=== PATIENT | female | born 1995 | race American Indian/Alaskan Native ===

== ENCOUNTER 2017-08-21 16:28 | Inpatient (IN) | payer OTHER ==
[2017-08-21] MEDS ORDERED: NACL 0.9% 1000 ML 1,000 ML IV ONE ×2 (17:00→19:15)
[2017-08-21] MEDS ORDERED: MORPHINE IV ONE ×2 (17:00→18:06)
[2017-08-21] MEDS ORDERED: ZOFRAN IV ONE (17:00)
[2017-08-21 17:03] LABS: Basophils % (Auto) 0.3 % (0.0-1.8); Hematocrit 39.1 % (30.3-42.9); Hemoglobin 13.2 gm/dl (10.1-14.3); Mean Corpuscular HGB Conc 34 % (30-34); Mean Corpuscular Hemoglobin 31 pg (28-32); Mean Corpuscular Volume 93 fl (79-97); Platelet Count 257 K/mm3 (140-440); Red Blood Count 4.22 M/mm3 (3.65-5.03); Red Cell Distribution Width 12.7 % (13.2-15.2); White Blood Count 20.1 K/mm3 (4.5-11.0)
--- NOTE | 2017-08-21 17:04 | Emergency Department Report ---
HPI - General Chief Complaint: Abdominal Pain Time Seen by Provider: 08/21/17 16:50 - HPI HPI: This is a 22-year-old Citizen Of [place] female presents to the emergency department, dropped off by her brother, with complaint of a 2 to three-day history of generalized abdominal pain that is worse in the lower quadrants. She denies any current nausea, vomiting or diarrhea but did have some last week. Previous to this patient that she had some flulike symptoms for a few weeks. She just started having what she believes is her menstrual cycle and therefore took some ibuprofen but this appeared to make symptoms worse. She is having a normal amount of vaginal bleeding consistent with her menstrual cycle but she denies any vaginal discharge, dysuria. She says that she has some increased pain with bowel movements but does not have any trouble doing so. She denies any past medical history. No recent travel or sick contacts at home. She does not have a primary care physician. ED Past Medical Hx - Past Medical History Previous Medical History?: No - Surgical History Additional Surgical History: - Social History Smoking Status: Never Smoker Substance Use Type: None ED Review of Systems ROS: Stated complaint: ABD PAIN/ABD SWELLING Other details as noted in HPI Comment: All other systems reviewed and negative Constitutional: denies: chills, fever Eyes: denies: eye pain, eye discharge, vision change ENT: denies: ear pain, throat pain Respiratory: denies: cough, shortness of breath, wheezing Cardiovascular: denies: chest pain, palpitations Gastrointestinal: abdominal pain. denies: melena Genitourinary: denies: urgency, dysuria, discharge Musculoskeletal: denies: back pain, joint swelling, arthralgia Skin: denies: rash, lesions Neurological: headache. denies: numbness, paresthesias Physical Exam - Physical Exam Vital Signs: Vital Signs 08/21/17 16:31 Temperature 100.4 F H Pulse Rate 145 H Respiratory 20 Rate Blood Pressure 138/86 O2 Sat by Pulse 100 Oximetry Physical Exam: GENERAL: The patient is well-developed well-nourished. HENT: Normocephalic. Atraumatic. Patient has moist mucous membranes. EYES: Extraocular motions are intact. Pupils equal reactive to light bilaterally. NECK: Supple. Trachea is midline. CHEST/LUNGS: Clear to auscultation. There is no respiratory distress noted. HEART/CARDIOVASCULAR: Regular. There is no tachycardia. There is no murmur. ABDOMEN: Abdomen is soft. Patient has moderate generalized tenderness to palpation of the abdomen. There is some mild guarding but no rebound tenderness. No peritoneal signs. Patient has normal bowel sounds. There is no abdominal distention. SKIN: Skin is warm and dry. NEURO: The patient is awake, alert, and oriented. The patient is cooperative. The patient has no focal neurologic deficits. The patient has normal speech. MUSCULOSKELETAL: There is no tenderness or deformity. There is no limitation range of motion. There is no evidence of acute injury. ED Course Vital Signs 08/21/17 16:31 Temperature 100.4 F H Pulse Rate 145 H Respiratory 20 Rate Blood Pressure 138/86 O2 Sat by Pulse 100 Oximetry ED Medical Decision Making - Lab Data Result diagrams: 08/21/17 16:40 08/21/17 16:40 - Radiology Data Radiology results: report reviewed EXAM: CT ABDOMEN PELVIS W CON HISTORY: Abd pain COMPARISON: None available. TECHNIQUE: Contiguous axial images were obtained. Additional sagittal and coronal reformatted images were obtained. Administration of IV contrast given per institution protocol. Images submitted for interpretation. 100 cc Omnipaque 300. FINDINGS: Mild subsegmental atelectasis at the right lung base. 5 millimeter low-attenuation lesion at the junction between the left and right hepatic lobes. This is too small to accurately characterize but may reflect a tiny cyst. Mild focal fatty infiltration of liver along the falciform ligament. Otherwise, liver, spleen, pancreas and adrenal glands are unremarkable. Common bile duct measures 4-5 millimeters within normal limits. No calcified gallstones. No solid renal lesion. No hydronephrosis. Aorta and IVC are normal in caliber. Several fluid-filled small bowel loops in the pelvis with mild hyperemia concerning for enteritis. Moderate large amount of stool in the colon. No bowel obstruction. No free air. Questionable visualization of the appendix measuring 4-5 millimeters in diameter (series 3, image [id number]). No adjacent fat stranding or fluid. Uterus and ovaries are grossly unremarkable. Urinary bladder is unremarkable. Bony pelvis and lumbar spine are grossly intact. IMPRESSION: Several fluid-filled small bowel loops in the pelvis with mild hyperemia concerning for enteritis likely inflammatory infectious in etiology. No bowel obstruction. Moderate large amount of stool in the colon. This questionable visualization appendix which appears to be normal in caliber. No evidence of acute appendicitis by CT at this time. No other acute findings. Transcribed By: LMA Dictated By: ORALIA DICKINSON MD Electronically Authenticated By: ORALIA DICKINSON MD Signed Date/Time: 08/21/17 1526 - Medical Decision Making The patient appears to have sepsis secondary to a urinary tract infection. She has a 20,000 white count with a left shift. She has a urinary tract infection and urine cultures were sent and the patient was started on Rocephin. She has a low-grade fever, tachycardia. CT of the abdomen and pelvis shows several fluid-filled small bowel loops concerning for enteritis but no bowel obstruction and there is a large amount of stool throughout the intestines. She will be admitted to the hospital for further evaluation and treatment and has been accepted for admission by the hospitalist, Dr. Dixon. - Differential Diagnosis sepsis, UTI, appendicitis, pancreatitis Critical Care Time: No Critical care attestation.: If time is entered above; I have spent that time in minutes in the direct care of this critically ill patient, excluding procedure time. ED Disposition Clinical Impression: Enteritis Sepsis Qualifiers: Sepsis type: sepsis due to unspecified organism Qualified Code(s): A41.9 - Sepsis, unspecified organism UTI (urinary tract infection) Qualifiers: Urinary tract infection type: acute cystitis Hematuria presence: with hematuria Qualified Code(s): N30.01 - Acute cystitis with hematuria Abdominal pain Qualifiers: Abdominal location: generalized Qualified Code(s): R10.84 - Generalized abdominal pain Disposition: OP ADMIT IP TO THIS HOSP Is pt being admited?: Yes Condition: Stable Time of Disposition: 19:35
[2017-08-21 17:06] LABS: Alanine Aminotransferase 7 units/L (7-56); Albumin 4.1 g/dL (3.9-5); Albumin/Globulin Ratio 1.1 %; Alkaline Phosphatase 18 units/L (35-129); Anion Gap 19 mmol/L; BUN/Creatinine Ratio 13; Blood Urea Nitrogen 9 mg/dL (7-17); Calcium 9.3 mg/dL (8.4-10.2); Carbon Dioxide 25 mmol/L (22-30); Chloride 96.6 mmol/L (98-107); Glucose 114 mg/dL (65-100); Lipase 14 units/L (13-60); Potassium 4.2 mmol/L (3.6-5.0); Sodium 136 mmol/L (137-145)
[2017-08-21 17:08] LABS: Bacteria,Urine 1+ /HPF (Negative); Bilirubin,Urine NEG (Negative); Blood,Urine LG (Negative); Ketones,Urine NEG (Negative); Leukocyte Esterase,Urine MOD (Negative); Mucus,Urine FEW /HPF; Nitrite,Urine POS (Negative)
[2017-08-21] MEDS ORDERED: NACL ONE (17:27)
[2017-08-21] MEDS ORDERED: ROCEPHIN/NS 1 GM/50 ML 1 GM/50 ML BAG IV ONE (17:36)
[2017-08-21] MEDS ORDERED: cefTRIAXone 1 GM in NACL 0.9% 20 ML IV ONE (17:45)
[2017-08-21] MEDS ORDERED: TYLENOL PO ONE (19:04)
--- NOTE | 2017-08-21 19:29 | Cat Scan Report ---
FINAL REPORT EXAM: CT ABDOMEN PELVIS W CON HISTORY: Abd pain COMPARISON: None available. TECHNIQUE: Contiguous axial images were obtained. Additional sagittal and coronal reformatted images were obtained. Administration of IV contrast given per institution protocol. Images submitted for interpretation. 100 cc Omnipaque 300. FINDINGS: Mild subsegmental atelectasis at the right lung base. 5 millimeter low-attenuation lesion at the junction between the left and right hepatic lobes. This is too small to accurately characterize but may reflect a tiny cyst. Mild focal fatty infiltration of liver along the falciform ligament. Otherwise, liver, spleen, pancreas and adrenal glands are unremarkable. Common bile duct measures 4-5 millimeters within normal limits. No calcified gallstones. No solid renal lesion. No hydronephrosis. Aorta and IVC are normal in caliber. Several fluid-filled small bowel loops in the pelvis with mild hyperemia concerning for enteritis. Moderate large amount of stool in the colon. No bowel obstruction. No free air. Questionable visualization of the appendix measuring 4-5 millimeters in diameter (series 3, image [id number]). No adjacent fat stranding or fluid. Uterus and ovaries are grossly unremarkable. Urinary bladder is unremarkable. Bony pelvis and lumbar spine are grossly intact. IMPRESSION: Several fluid-filled small bowel loops in the pelvis with mild hyperemia concerning for enteritis likely inflammatory infectious in etiology. No bowel obstruction. Moderate large amount of stool in the colon. This questionable visualization appendix which appears to be normal in caliber. No evidence of acute appendicitis by CT at this time. No other acute findings.
--- NOTE | 2017-08-21 19:30 | XRay Report ---
FINAL REPORT EXAM: XR ABDOMEN 2V HISTORY: Abd pain TECHNIQUE: Supine and upright abdomen PRIORS: None. FINDINGS: There is no free air seen. The bowel gas pattern is nonspecific and nonobstructive. There is air and stool in nondilated colon. There is gas located within normal caliber small bowel. There are a few colonic and small bowel air-fluid levels on the upright view. There are no suspicious calcifications IMPRESSION: Seen. Nonspecific, nonobstructive abdomen.
[2017-08-21] MEDS ORDERED: LEVAQUIN 750MG/150ML 750 MG/150 ML BAG IV ONE (19:42)
--- NOTE | 2017-08-21 19:44 | History and Physical Report ---
History of Present Illness Chief complaint: My stomach hurts really bad History of present illness: 22 YO Female with no PMH presents to ED for evaluation. Pt states that she has experienced pain in her abdomen for the past 3 days with persistent symptoms over that same time period. Pt states that pain is 8/10, Generalized, but worse in the lower abdomen, Pain is worse with defecation, nonradiating, worse with movement,but relieved somewhat with non-movement. Pt denies fever, chills, CP, Palpitations, NVD, Trauma, BRBPR, unintentional weight loss, night sweats, ingestion of food/water from now or different sources. Pt seen and evaluated in ED and found to have sepsis, CT abdomen and pelvis shows enteritis. Past History Past Medical History: No medical history, other (reviewed) Past Surgical History: Other (D&C) Social history: single Family history: no significant family history Medications and Allergies Allergies Allergy/AdvReac Type Severity Reaction Status Date / Time No Known Allergies Allergy Unverified 08/21/17 16:38 Active Meds: Active Medications Sodium Chloride (Nacl 0.9% 1000 Ml) 1,000 mls @ 999 mls/hr IV BOLUS ONE Stop: 08/21/17 20:15 Last Admin: 08/21/17 19:26 Dose: 999 mls/hr Levofloxacin/Dextrose (Levaquin 750mg/150ml) 750 mg in 150 mls @ 100 mls/hr IV ONCE ONE Stop: 08/21/17 21:11 Review of Systems Constitutional: no weight loss, no weight gain, no fever, no chills, no sweats, no night sweats Ears, nose, mouth and throat: no ear pain, no ear discharge, no tinnitis, no decreased hearing, no nose pain, no nasal congestion, no nasal discharge Breasts: no change in shape, no swelling, no mass Cardiovascular: no chest pain, no orthopnea, no palpitations, no rapid/ irregular heart beat, no edema, no syncope Respiratory: no cough, no cough with sputum, no excessive sputum, no hemoptysis , no shortness of breath Gastrointestinal: abdominal pain, no nausea, no vomiting, no diarrhea Genitourinary Female: no pelvic pain, no flank pain, no vaginal itching, no vaginal discharge, no vaginal odor, no abnormal vaginal bleeding, no genital sores Menstruation: currently menstrual Rectal: no pain, no incontinence, no bleeding Musculoskeletal: no neck stiffness, no neck pain, no shooting arm pain, no arm numbness/tingling, no low back pain Integumentary: no rash, no pruritis, no redness, no sores Neurological: no transient paralysis, no paralysis, no weakness, no parathesias , no numbness, no tingling, no syncope Psychiatric: no anxiety, no memory loss, no change in sleep habits, no sleep disturbances, no insomnia, no hypersomnia, no change in appetite, no change in libido Endocrine: no cold intolerance, no heat intolerance, no polyphagia, no excessive thirst, no polydipsia, no polyuria, no nocturia Hematologic/Lymphatic: no easy bruising, no easy bleeding Allergic/Immunologic: no urticaria, no allergic rhinitis, no wheezing Exam - Constitutional Vitals: Temp Pulse Resp BP Pulse Ox 100.5 F H 117 H 20 118/66 99 08/21/17 19:09 08/21/17 19:09 08/21/17 19:25 08/21/17 19:09 08/21/17 17:22 General appearance: Present: mild distress - EENT Eyes: Present: PERRL ENT: hearing intact, clear oral mucosa - Neck Neck: Present: supple, normal ROM - Respiratory Respiratory effort: normal Respiratory: bilateral: CTA - Cardiovascular Rhythm: other (tachycardia) Heart Sounds: Present: S1 & S2. Absent: rub, click - Extremities Extremities: pulses symmetrical, No edema Peripheral Pulses: abnormal (Capillary refill more than 3.5 seconds) - Abdominal General gastrointestinal: Present: soft, tender, non-distended. Absent: hypoactive bowel sounds, hepatomegaly, splenomegaly Female genitourinary: Present: normal - Integumentary Integumentary: Present: clear, warm, dry - Musculoskeletal Musculoskeletal: gait normal, strength equal bilaterally - Psychiatric Psychiatric: appropriate mood/affect, intact judgment & insight - Neurologic Neurologic: CNII-XII intact, moves all extremities Results - Labs CBC & Chem 7: 08/21/17 16:40 08/21/17 16:40 Labs: Abnormal lab results 08/21/17 08/21/17 08/21/17 Range/Units 16:40 16:40 16:54 WBC 20.1 H (4.5-11.0) K/mm3 RDW 12.7 L (13.2-15.2) % Lymph % (Auto) 6.8 L (13.4-35.0) % Seg Neutrophils % 88.9 H (40.0-70.0) % Seg Neutrophils # 17.9 H (1.8-7.7) K/mm3 Sodium 136 L (137-145) mmol/L Chloride 96.6 L (98-107) mmol/L Glucose 114 H (65-100) mg/dL Alkaline Phosphatase 18 L (35-129) units/L Urine pH 8.0 H (5.0-7.0) Urine WBC (Auto) 87.0 H (0.0-6.0) /HPF Assessment and Plan - Patient Problems (1) Sepsis Status: Acute Qualifiers: Sepsis type: sepsis due to unspecified organism Qualified Code(s): A41.9 - Sepsis, unspecified organism Plan to address problem: IV abx, IVF, serial lactic acid, monitor uop q shift,CMB, BMP, CT Abdomen pelvis , urinalysis, blood cultures, (2) UTI (urinary tract infection) Status: Acute Plan to address problem: IV abx, pain control, (3) Enteritis Status: Acute Plan to address problem: IV abx, CT abdomen pelvis, serial abdominal exam, will consider steroid therapy s/p resolution of leukocytosis. (4) Abdominal pain Status: Acute Plan to address problem: Serial abdominal exam, CT abdomen pelvis, IVF resuscitation, (5) DVT prophylaxis Status: Acute
[2017-08-21] MEDS ORDERED: DULCOLAX PR PRN (19:50)
[2017-08-21] MEDS ORDERED: PROVENTIL IH PRN (19:50)
[2017-08-21] MEDS ORDERED: NACL 0.9% 1000 ML IV ONE (19:52)
[2017-08-21] MEDS ORDERED: NACL 0.9% 1000 ML 1,000 ML ONE (21:23)
[2017-08-21] MEDS ORDERED: MAXIPIME/NS 2 GM/100 ML 2 GM/100 ML BAG IV SCH (22:00)
[2017-08-21] MEDS: NACL 0.45% 1000 ML 1,000 ML IV SCH (22:29)
[2017-08-21] MEDS: FLAGYL 500 MG/100 ML 500 MG/100 ML BAG IV SCH (22:44)
[2017-08-21] MEDS: PEPCID IV SCH (22:45)
[2017-08-21] MEDS: TYLENOL PO PRN (22:50)
[2017-08-22] MEDS: MAXIPIME 2 GM in NACL 0.9% 20 ML IV SCH ×3 (00:23→18:40)
[2017-08-22] MEDS: ZOFRAN IV PRN (00:55)
[2017-08-22] MEDS: BENADRYL IV PRN ×2 (01:55→09:59)
[2017-08-22] MEDS: MORPHINE IV PRN ×5 (05:54→22:59)
[2017-08-22] MEDS: FLAGYL 500 MG/100 ML 500 MG/100 ML BAG IV SCH ×3 (05:54→22:53)
[2017-08-22] MEDS: NACL 0.45% 1000 ML 1,000 ML IV SCH ×2 (06:03→14:18)
[2017-08-22] MEDS: MILK OF MAGNESIA PO PRN (06:04)
[2017-08-22] MEDS: PEPCID IV SCH ×2 (10:02→22:54)
--- NOTE | 2017-08-22 12:34 | Progress Note ---
Assessment and Plan /Sepsis IV abx, IVF, serial lactic acid, CT Abdomen pelvis obtained and showed colitis, follow blood cultures, /UTI (urinary tract infection) IV abx, pain control, /Enteritis with abdominal pain IV abx, full liquid diet, serial abdominal exam, / DVT prophylaxis lovenox Brief History: 22 YO Female with no PMH presents to ED for evaluation of her abdomenal pain for the past 3 days. In the ER CT of the abdomen and pelvis showed several fluid-filled small bowel loops concerning for enteritis but no bowel obstruction and there is a large amount of stool throughout the intestines. Physical exam: General appearance: Present: mild distress - EENT Eyes: Present: PERRL ENT: hearing intact, clear oral mucosa - Neck Neck: Present: supple, normal ROM - Respiratory Respiratory effort: normal Respiratory: bilateral: CTA - Cardiovascular Rhythm: other (tachycardia) Heart Sounds: Present: S1 & S2. Absent: rub, click - Extremities Extremities: pulses symmetrical, No edema Peripheral Pulses: abnormal (Capillary refill more than 3.5 seconds) - Abdominal General gastrointestinal: Present: soft, diffusely tender, non-distended. Absent: hypoactive bowel sounds, hepatomegaly, splenomegaly Female genitourinary: Present: normal - Integumentary Integumentary: Present: clear, warm, dry - Musculoskeletal Musculoskeletal: gait normal, strength equal bilaterally - Psychiatric Psychiatric: appropriate mood/affect, intact judgment & insight - Neurologic Neurologic: CNII-XII intact, moves all extremities Subjective Date of service: 08/22/17 Interval history: Pt seen and examined No acute issue o/n unable to tolerate solid food still c/o abdominal pain Objective - Constitutional Vitals: Vital Signs - 12hr 08/22/17 07:19 Temperature 98.0 F Pulse Rate 88 Respiratory 18 Rate Blood Pressure 111/71 O2 Sat by Pulse 100 Oximetry - Labs CBC & Chem 7: 08/23/17 05:09 08/23/17 05:09 Labs: Abnormal lab results 08/21/17 08/21/17 08/21/17 Range/Units 16:40 16:40 16:54 WBC 20.1 H (4.5-11.0) K/mm3 RDW 12.7 L (13.2-15.2) % Lymph % (Auto) 6.8 L (13.4-35.0) % Seg Neutrophils % 88.9 H (40.0-70.0) % Seg Neutrophils # 17.9 H (1.8-7.7) K/mm3 Sodium 136 L (137-145) mmol/L Chloride 96.6 L (98-107) mmol/L Glucose 114 H (65-100) mg/dL Alkaline Phosphatase 18 L (35-129) units/L Urine pH 8.0 H (5.0-7.0) Urine WBC (Auto) 87.0 H (0.0-6.0) /HPF
[2017-08-23] MEDS: NACL 0.45% 1000 ML 1,000 ML IV SCH ×3 (00:49→21:27)
[2017-08-23] MEDS: MAXIPIME 2 GM in NACL 0.9% 20 ML IV SCH ×3 (00:50→15:33)
[2017-08-23 06:13] LABS: Basophils % (Auto) 0.7 % (0.0-1.8); Eosinophils % (Auto) 0.4 % (0.0-4.3); Mean Corpuscular HGB Conc 33 % (30-34); Mean Corpuscular Hemoglobin 31 pg (28-32); Mean Corpuscular Volume 93 fl (79-97); Platelet Count 189 K/mm3 (140-440); Red Blood Count 3.21 M/mm3 (3.65-5.03); Red Cell Distribution Width 13.2 % (13.2-15.2); White Blood Count 6.8 K/mm3 (4.5-11.0)
[2017-08-23 06:29] LABS: Anion Gap 15 mmol/L; BUN/Creatinine Ratio 10; Blood Urea Nitrogen 6 mg/dL (7-17); Carbon Dioxide 24 mmol/L (22-30); Chloride 101.7 mmol/L (98-107); Glucose 82 mg/dL (65-100); Sodium 137 mmol/L (137-145)
[2017-08-23] MEDS: FLAGYL 500 MG/100 ML 500 MG/100 ML BAG IV SCH ×3 (06:36→21:28)
[2017-08-23] MEDS: TYLENOL PO PRN (06:47)
[2017-08-23] MEDS: MORPHINE IV PRN (06:49)
[2017-08-23] MEDS: PEPCID IV SCH ×2 (11:04→21:29)
[2017-08-23] MEDS: ZOFRAN IV PRN (12:09)
--- NOTE | 2017-08-23 16:01 | XRay Report ---
ABDOMEN RADIOGRAPHS INDICATION: Abdominal pain. COMPARISON: 08/21/2017 FINDINGS: Single, frontal abdominal radiograph again demonstrates moderate descending colon stool/possible constipation. Overall nonobstructive bowel gas pattern. No focal suspicious calcifications or pneumatosis, to the extent assessed. Lung bases incompletely imaged. Intact bones. CONCLUSION: No significant interval change, as described. Thank you for the opportunity to participate in this patient's care.
[2017-08-23] MEDS ORDERED: DULCOLAX PO PRN (16:48)
[2017-08-23] MEDS: MILK OF MAGNESIA PO PRN (16:51)
--- NOTE | 2017-08-23 18:32 | Progress Note ---
Assessment and Plan /Sepsis likely due to colitis IV abx, IVF, serial lactic acid, CT Abdomen pelvis obtained and showed colitis, follow blood cultures, /UTI (urinary tract infection) IV abx, pain control, /Enteritis with abdominal pain IV abx, full liquid diet, serial abdominal exam, /constipation add stool softner / DVT prophylaxis lovenox Brief History: 22 YO Female with no PMH presents to ED for evaluation of her abdomenal pain for the past 3 days. In the ER CT of the abdomen and pelvis showed several fluid-filled small bowel loops concerning for enteritis but no bowel obstruction and there is a large amount of stool throughout the intestines. Physical exam: General appearance: Present: mild distress - EENT Eyes: Present: PERRL ENT: hearing intact, clear oral mucosa - Neck Neck: Present: supple, normal ROM - Respiratory Respiratory effort: normal Respiratory: bilateral: CTA - Cardiovascular Rhythm: other (tachycardia) Heart Sounds: Present: S1 & S2. Absent: rub, click - Extremities Extremities: pulses symmetrical, No edema Peripheral Pulses: abnormal (Capillary refill more than 3.5 seconds) - Abdominal General gastrointestinal: Present: soft, diffusely tender, non-distended. Absent: hypoactive bowel sounds, hepatomegaly, splenomegaly Female genitourinary: Present: normal - Integumentary Integumentary: Present: clear, warm, dry - Musculoskeletal Musculoskeletal: gait normal, strength equal bilaterally - Psychiatric Psychiatric: appropriate mood/affect, intact judgment & insight - Neurologic Neurologic: CNII-XII intact, moves all extremities Subjective Date of service: 08/23/17 Interval history: Pt seen and examined No acute issue o/n unable to tolerate solid food still c/o abdominal pain abdominal xry showed no obstruction, possible constipation Objective - Constitutional Vitals: Vital Signs - 12hr 08/23/17 08/23/17 08/23/17 06:47 06:49 08:55 Temperature Pulse Rate Respiratory 22 22 Rate Blood Pressure Blood Pressure [Left] O2 Sat by Pulse 99 Oximetry 08/23/17 08/23/17 09:02 16:59 Temperature 99.6 F 98.7 F Pulse Rate 94 H 68 Respiratory 15 15 Rate Blood Pressure 128/97 Blood Pressure 124/86 [Left] O2 Sat by Pulse 97 100 Oximetry - Labs CBC & Chem 7: 08/23/17 05:09 08/23/17 05:09 Labs: Abnormal lab results 08/23/17 08/23/17 Range/Units 05:09 05:09 RBC 3.21 L (3.65-5.03) M/mm3 Hgb 10.0 L D (10.1-14.3) gm/dl Hct 30.0 L D (30.3-42.9) % Lymph % (Auto) 10.8 L (13.4-35.0) % Lymph # 0.7 L (1.2-5.4) K/mm3 Seg Neutrophils % 81.2 H (40.0-70.0) % BUN 6 L (7-17) mg/dL Creatinine 0.6 L (0.7-1.2) mg/dL Calcium 8.0 L (8.4-10.2) mg/dL
[2017-08-24] MEDS: MAXIPIME 2 GM in NACL 0.9% 20 ML IV SCH (00:45)
[2017-08-24 04:58] LABS: Hemoglobin 10.5 gm/dl (10.1-14.3); Mean Corpuscular HGB Conc 34 % (30-34); Mean Corpuscular Hemoglobin 31 pg (28-32); Mean Corpuscular Volume 93 fl (79-97); Platelet Count 219 K/mm3 (140-440); Red Blood Count 3.33 M/mm3 (3.65-5.03); Red Cell Distribution Width 12.5 % (13.2-15.2); White Blood Count 5.2 K/mm3 (4.5-11.0)
[2017-08-24] MEDS: FLAGYL 500 MG/100 ML 500 MG/100 ML BAG IV SCH ×2 (06:26→13:54)
[2017-08-24 06:33] LABS: Iron 71 ug/dL (37-170); Total Iron Binding Capacity 201 mcg/dL (250-450)
[2017-08-24] MEDS ORDERED: LEVAQUIN 750MG/150ML 750 MG/150 ML BAG IV SCH (10:00)
[2017-08-24] MEDS: PEPCID IV SCH (10:01)
--- NOTE | 2017-08-24 13:08 | Discharge Summary ---
Providers - Providers Date of Admission: 08/21/17 20:38 Date of discharge: 08/24/17 Attending physician: TRISHA NORRIS Primary care physician: GRACIELA URBINA Hospitalization Condition: Stable Hospital course: 22 YO Female with no PMH presents to ED for evaluation of her abdomenal pain for the past 3 days. In the ER CT of the abdomen and pelvis showed several fluid -filled small bowel loops concerning for enteritis but no bowel obstruction and there is a large amount of stool throughout the intestines. /Sepsis likely due to colitis IV abx, IVF, serial lactic acid, CT Abdomen pelvis obtained and showed colitis, follow blood cultures, /UTI (urinary tract infection) IV abx, pain control, /Enteritis with abdominal pain IV abx, full liquid diet, serial abdominal exam, /constipation add stool softner / DVT prophylaxis lovenox Disposition: DC- TO HOME OR SELFCARE Time spent for discharge: 35 minutes Core Measure Documentation - Palliative Care Palliative Care/ Comfort Measures: Not Applicable - Core Measures Any of the following diagnoses?: none - VTE Discharge Requirements Deep Vein Thrombosis/Pulmonary Embolism Present on Admission: No Has pt received <5 days of overlap therapy or INR<2.0: No Anticoagulant overlap therapy prescribed at discharge: No Contraindication No Overlap Therapy order at DC: Not Indicated Exam - Physical Exam Narrative exam: GEN: WDWN, NAD, AWAKE, ALERT, ORIENTATED x 3 HEENT: NCAT, EOMI, PERRL, OP Clear NECK: supple, no adenopathy, no thyromegaly, no JVD CVS/HEART: RRR, NORMAL S1S2, NO JVD, pulses present bilaterally CHEST/LUNGS: CTA B, Symmetrical chest expansion, good air entry bilaterally GI/Abdomen: soft, NTND, good bowel sounds, no guarding or rebound /Bladder: no suprapubic tenderness, no CVA or paraspinal tenderness EXT/Skin: no c/c/e, no obvious rash MSK: FROM x 4 Neuro: CN 2-12 grossly intact, no new focal deficits Psych: calm - Constitutional Vitals: Temp Pulse Resp BP Pulse Ox 98.1 F 68 15 140/94 100 08/24/17 07:52 08/24/17 07:52 08/24/17 07:52 08/24/17 07:52 08/24/17 07:52 Plan Activity: other (no strenous activity until cleared by pcp) Diet: advance as tolerated Follow up with: GRACIELA URBINA MD [Primary Care Provider] - 7 Days Prescriptions: Bisacodyl [Dulcolax tab] 10 mg PO QDAY PRN #5 tablet PRN Reason: Constipation Levofloxacin [Levaquin] 750 mg PO QDAY #7 day metroNIDAZOLE [Flagyl] 500 mg PO Q8HR #7 day
[2017-08-24 16:28] VITALS: BP 142/96
== END 2017-08-24 19:00 | disposition home or self-care (01) | DRG 872 ==
LOC: ED 16:28 → 3A 20:38
PROVIDERS: ADMIT Internal Medicine; ATTEND Internal Medicine
DX: A41.9 Sepsis, unspecified organism (principal); N39.0 Urinary tract infection, site not specified; K52.9 Noninfective gastroenteritis and colitis, unspecified; K59.00 Constipation, unspecified
CPT/HCPCS: 36415; 74000; 74020; 74177; 80048; 80053; 81001; 82140; 82607; 82728; 82747; 83550; 83690; 84702; 85025; 85027; 87040; 87076; 87086; 87186; 96365; 96366; 96375; 96376; J0692; J0696; J1200; J1956; J2270; J2405; J7030; Q9967